=== PATIENT | female | born 1995 | race Caucasian/White ===

== ENCOUNTER 2019-11-17 21:40 | Inpatient (IN) | payer OTHER ==
[2019-11-17 22:22] LABS: BASO % 0.2 % (0-2.0); EOS % 1.3 % (0-4.5); HEMATOCRIT 31.3 % (32.4-45.2); HEMOGLOBIN 10.6 GM/dL (10.7-15.3); LYMPH % 14.9 % (8-40); MCH 30.7 pg (25.7-33.7); MCHC 33.9 g/dl (32.0-36.0); MEAN CELL VOLUME 90.4 fl (80-96); MEAN PLT VOLUME 8.8 fl (7.5-11.1); MONO % 5.6 % (3.8-10.2); PLATELET COUNT 184 K/MM3 (134-434); RBC 3.46 M/mm3 (3.60-5.2); RDW 13.9 % (11.6-15.6)
[2019-11-17 22:36] LABS: INR 0.9 (0.83-1.09); PROTHROMBIN TIME (PATIENT) 10.6 SEC (9.7-13.0)
[2019-11-17 22:39] LABS: ACTIVATED PTT 23.3 SECONDS (25.2-36.5)
[2019-11-17 22:51] LABS: BLOOD UREA NITROGEN 9.7 mg/dL (7-18); CALCIUM 8.8 mg/dL (8.5-10.1); CREATININE 0.6 mg/dL (0.55-1.3); POTASSIUM 3.8 mmol/L (3.5-5.1)
[2019-11-17] MEDS ORDERED: OXYTOCIN 30 UNITS in 0.9% NS 30 UNIT/500 ML INFUS.BAG IVPB SCH (23:15)
[2019-11-17] MEDS ORDERED: OXYTOCIN 30 UNITS in 0.9% NS 30 UNIT/500 ML INFUS.BAG IVPB ONE (23:15)
[2019-11-17] MEDS ORDERED: ELECTROLYTE-148 SOLN 1,000 ML IV SCH (23:15)
--- NOTE | 2019-11-17 23:27 | HP ---
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 Vanishing twin Velamentous cord insertion Clinodactily, Cardiac echogenic foci - genetics : NIPS low risk History Source: Patient Limitations to Obtaining History: No Limitations - Past Medical History ...: 2 ...Para: 1 ...EDC by Sono: 11/21/19 - Past Surgical History Past Surgical History: Yes: Cholecystectomy Hx Myomectomy: No Hx Transabdominal Cerclage: No - Smoking History Smoking history: Never smoked Have you smoked in the past 12 months: No - Alcohol/Substance Use Hx Alcohol Use: No History of Substance Use: reports: None - Social History Usual Living Arrangement: Yes: With Spouse History of Recent Travel: No Home Medications - Allergies Allergies/Adverse Reactions: Allergies Allergy/AdvReac Type Severity Reaction Status Date / Time almond Allergy Mild Itching Verified 11/17/19 22:38 hazelnut Allergy Mild Hives Verified 11/17/19 22:38 polen Allergy Mild Itching Uncoded 11/17/19 22:39 - Home Medications Home Medications: Ambulatory Orders Pnv No.95/Ferrous Fum/Folic AC [ Caplet] 1 tab PO DAILY 11/17/19 Family Medical History Family History: Unremarkable Review of Systems - Review of Systems Constitutional: reports: No Symptoms Eyes: reports: No Symptoms HENT: reports: No Symptoms Neck: reports: No Symptoms Cardiovascular: reports: No Symptoms Respiratory: reports: No Symptoms Gastrointestinal: reports: No Symptoms Genitourinary: reports: Pain Breasts: reports: No Symptoms Reported Musculoskeletal: reports: No Symptoms Integumentary: reports: No Symptoms Neurological: reports: No Symptoms Endocrine: reports: No Symptoms Hematology/Lymphatic: reports: No Symptoms Psychiatric: reports: No Symptoms Physical Exam - Maternity Vital Signs: Vital Signs Temperature 98.3 F 11/17/19 22:48 Pulse Rate 92 H 11/17/19 22:48 Respiratory Rate 20 11/17/19 22:48 Blood Pressure 123/74 11/17/19 22:48 O2 Sat by Pulse Oximetry (%) Constitutional: Yes: Well Nourished, No Distress Eyes: Yes: WNL HENT: Yes: WNL Neck: Yes: WNL Cardiovascular: Yes: WNL Lungs: Clear to auscultation Breast(s): Yes: WNL - Abdominal Exam/OB Fundal Height: 40 Number of Fetuses: Single Presentation: Vertex Contractions: Yes Regularity: Regular Intensity: Mild/Mod Monitor Mode: External Heart Rate (range): 140 Heart Rate Location: [facility] [place] Category: I Accelerations: Uniform Decelerations: None - Vaginal Exam/OB Vaginal Bleeding: No Dilatation (cm): 6 Effacement (%): 100 Amniotic Membrane Status: Intact Presentation: Vertex/Position Station: -2 - Physical Exam Musculoskeletal: Yes: WNL Extremities: Yes: WNL, Other (Varicosity) Integumentary: Yes: WNL Deep Tendon Reflex Grade: Normal +2 Psychiatric: Yes: WNL - Labs Lab Results: CBC, BMP 11/17/19 22:15 11/17/19 22:15 Hemorrhage Risk Assessment - Risk Factors Risk Score: 1 Risk Level: Medium Risk Problem List - Problems (1) 39 weeks gestation of Code(s): Z3A.39 - 39 WEEKS GESTATION OF (2) Velamentous insertion of umbilical cord Code(s): O43.129 - VELAMENTOUS INSERTION OF UMBILICAL CORD, UNSP TRIMESTER Assessment/Plan Admit to LD Anticipate
[2019-11-17] MEDS ORDERED: LIDOCAINE HCL 1% PRESERVATIVE FREE - 30ML VIAL ONE (23:41)
[2019-11-18] MEDS ORDERED: METHYLERGONOVINE MALEATE 0.2 MG/1 ML AMP IM PRN (00:06)
[2019-11-18] MEDS ORDERED: WITCH HAZEL 50% (TUCKS) 40 PAD/JAR PAD TP PRN (00:06)
[2019-11-18] MEDS ORDERED: BISACODYL 10 MG SUPP.RECT RC PRN (00:06)
[2019-11-18] MEDS ORDERED: ACETAMINOPHEN 325 MG TABLET (FP) PO PRN (00:06)
[2019-11-18] MEDS ORDERED: BENZOCAINE 20% 57 GM BOTTLE TP PRN (00:06)
[2019-11-18] MEDS ORDERED: BENZOCAINE 28 GM HEMORRHOIDAL OINTMENT TP PRN (00:06)
--- NOTE | 2019-11-18 00:06 | PN ---
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
[2019-11-18] MEDS ORDERED: MAGNESIUM HYDROX 2400MG/30ML ORAL SUSPENSION 30 ML CUP PO ONE (00:09)
[2019-11-18] MEDS ORDERED: OXYTOCIN 20 UNITS in 0.9% NS 20 UNIT/1,000 ML INFUS.BAG IV SCH (00:15)
--- NOTE | 2019-11-18 10:06 | PN ---
Post Progress Note Type of Delivery: Vital Signs: Vital Signs Temperature 99.4 F 11/18/19 06:19 Pulse Rate 80 11/18/19 06:19 Respiratory Rate 20 11/18/19 06:19 Blood Pressure 124/79 11/18/19 06:19 O2 Sat by Pulse Oximetry (%) 99 11/18/19 01:00 Breast Exam: Yes: Soft Uterus: Yes: Fundus Firm, Fundus below umbilicus Abdomen/GI: Yes: Abdomen soft Lochia: Yes: Rubra Lochia, amount: Small Extremities: Yes: Calves non-tender Perineum: Yes: Laceration Activity: Ambulating - Labs Labs: CBC WBC 10.0 K/mm3 (4.0-10.0) 11/17/19 22:15 RBC 3.46 M/mm3 (3.60-5.2) L 11/17/19 22:15 Hgb 10.6 GM/dL (10.7-15.3) L 11/17/19 22:15 Hct 31.3 % (32.4-45.2) L 11/17/19 22:15 MCV 90.4 fl (80-96) 11/17/19 22:15 MCH 30.7 pg (25.7-33.7) 11/17/19 22:15 MCHC 33.9 g/dl (32.0-36.0) 11/17/19 22:15 RDW 13.9 % (11.6-15.6) 11/17/19 22:15 Plt Count 184 K/MM3 (134-434) 11/17/19 22:15 MPV 8.8 fl (7.5-11.1) 11/17/19 22:15 Absolute Neuts (auto) 7.8 K/mm3 (1.5-8.0) 11/17/19 22:15 Neutrophils % 78.0 % (42.8-82.8) 11/17/19 22:15 Lymphocytes % 14.9 % (8-40) 11/17/19 22:15 Monocytes % 5.6 % (3.8-10.2) 11/17/19 22:15 Eosinophils % 1.3 % (0-4.5) 11/17/19 22:15 Basophils % 0.2 % (0-2.0) 11/17/19 22:15 Nucleated RBC % 0 % (0-0) 11/17/19 22:15 Problem List - Problems (1) 39 weeks gestation of Code(s): Z3A.39 - 39 WEEKS GESTATION OF (2) Velamentous insertion of umbilical cord Code(s): O43.129 - VELAMENTOUS INSERTION OF UMBILICAL CORD, UNSP TRIMESTER Assessment/Plan Abulate Breast feeding
[2019-11-18] MEDS: PRENATAL VITAMINS W/ FOLIC ACID TABLET (FP) PO SCH (10:26)
[2019-11-18] MEDS: FERROUS SO4 325 MG TABLET (FP) PO SCH ×3 (10:26→18:01)
--- NOTE | 2019-11-18 12:46 | PN ---
Progress Note (short form) - Note Progress Note: Call by the nurse: Pt c/o right leg pain PE - Varicosity of LE R>L Small, painful area of varicosity on the right/midposterior A/P S/P Varicosity of LE Doppler studies stat Problem List - Problems (1) 39 weeks gestation of Code(s): Z3A.39 - 39 WEEKS GESTATION OF (2) Velamentous insertion of umbilical cord Code(s): O43.129 - VELAMENTOUS INSERTION OF UMBILICAL CORD, UNSP TRIMESTER
[2019-11-18] MEDS: IBUPROFEN 600 MG TABLET (FP) PO PRN (18:02)
--- NOTE | 2019-11-18 21:20 | DS ---
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: Vital Signs Temperature 98.4 F 11/18/19 20:41 Pulse Rate 86 11/18/19 20:41 Respiratory Rate 20 11/18/19 20:41 Blood Pressure 124/70 11/18/19 20:41 O2 Sat by Pulse Oximetry (%) 99 11/18/19 01:00 Constitutional: Yes: Well Nourished, No Distress Eyes: Yes: WNL HENT: Yes: WNL Neck: Yes: WNL Cardiovascular: Yes: WNL Respiratory: Yes: WNL Gastrointestinal: Yes: WNL ...Rectal Exam: Yes: WNL Renal/: Yes: WNL Pelvis: Yes: WNL ....Post : Yes: Uterus firm, Uterus non-tender Breast(s): Yes: WNL Musculoskeletal: Yes: WNL Edema: LLE: 1+, RLE: 1+ Neurological: Yes: WNL ...Motor Strength: WNL Psychiatric: Yes: WNL Labs: CBC, BMP 11/17/19 22:15 11/17/19 22:15 Delivery - Delivery Vaginal Delivery: No Problems, Spontaneous Type of Anesthesia: Local Episiotomy/Laceration: Perineal Extension/lac, 1st degree EBL (cc): 600 Delivery, Single - Stages of Labor Date 1st Stage Initiatied: 11/17/19 Time 1st Stage Initiated: 18:00 Date 2nd Stage Initiated: 11/18/19 Time 2nd Stage Initiated: 23:30 Date of Delivery: 11/17/19 Time of Delivery: 23:38 Time Placenta Delivered: 23:43 Placenta: Yes: Spontaneous, Abnormal 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 - 1 Minute Total Score: 9 5 Minutes Total Score: 9 - [place] Feeding Plan Initial Plan: Exclusive throughout hospitalization Discharge Summary Problems reviewed: Yes Reason For Visit: LABOR Current Active Problems 39 weeks gestation of (Acute) Velamentous insertion of umbilical cord (Acute) Condition: Good - Instructions Diet, Activity, Other Instructions: Regular ambulate Disposition: HOME - Home Medications Comprehensive Discharge Medication List: Ambulatory Orders Pnv No.95/Ferrous Fum/Folic AC [ Caplet] 1 tab PO DAILY 11/17/19
[2019-11-19] MEDS: FERROUS SO4 325 MG TABLET (FP) PO SCH ×2 (09:20→12:41)
[2019-11-19] MEDS: PRENATAL VITAMINS W/ FOLIC ACID TABLET (FP) PO SCH (09:22)
[2019-11-19 10:50] LABS: BASO % 0.4 % (0-2.0); EOS % 1.9 % (0-4.5); HEMATOCRIT 28.3 % (32.4-45.2); HEMOGLOBIN 9.6 GM/dL (10.7-15.3); LYMPH % 23.6 % (8-40); MCH 30.7 pg (25.7-33.7); MCHC 33.9 g/dl (32.0-36.0); MEAN CELL VOLUME 90.4 fl (80-96); MEAN PLT VOLUME 8.8 fl (7.5-11.1); MONO % 4.8 % (3.8-10.2); NEUT % 69.3 % (42.8-82.8); PLATELET COUNT 192 K/MM3 (134-434); RBC 3.13 M/mm3 (3.60-5.2); RDW 14.1 % (11.6-15.6); WHITE BLOOD COUNT 9.2 K/mm3 (4.0-10.0)
--- NOTE | 2019-11-19 11:34 | PATH ---
Surgical Pathology Report Patient Name: HARSHA NELSON Med. Rec. 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 Specimen(s) Received PLACENTA Clinical History , 39.3 weeks, history of vanishing twins, echogenic foci, grade 3 placenta, velamentous insertion of cord Final Diagnosis PLACENTA, DELIVERY: 461 G THIRD TRIMESTER PLACENTA , TRIVASCULAR UMBILICAL CORD WITH VELAMENTOUS INSERTION, AND UNREMARKABLE PLACENTAL MEMBRANES. Electronically Signed Joya Patel M.D. Gross Description The specimen is received fresh labeled placenta and is a 461 gram, 18.5 x 12.5 x 2.6 cm. placenta with attached membranes and umbilical cord. The attached membranes are belle, translucent with focal opacities and insert marginally. The umbilical cord measures 19.5 cm. in length and averages 1 cm. in diameter. The cord inserts velamentously. No true knots or strictures are identified. Cut surface of the umbilical cord reveals 3 vessels. The surface is miller-blue with minimal fibrin deposition and appropriate caliber vessels. The maternal surface is red-brown with focal defects. Sectioning reveals red-brown, spongy parenchyma. No lesions are identified. Overcoiler sections are submitted in three cassettes as follows: 1- membrane rolls and umbilical cord; 2-3- full thickness sections of placenta. /11/18/2019 [facility]/11/18/2019
[2019-11-19] MEDS: IBUPROFEN 600 MG TABLET (FP) PO PRN (12:58)
[2019-11-19 15:19] VITALS: BP 121/72; PULSE 76; TEMP 98
== END 2019-11-19 14:30 | disposition home or self-care (01) | DRG 560 ==
LOC: JLDR 21:40 → J3W 11-18 02:34
PROVIDERS: ADMIT Obstetrics & Gynecology; ATTEND Obstetrics & Gynecology
PROC: 10E0XZZ Delivery of Products of Conception, External Approach (ICD-10-PCS; principal; 2019-11-17)
PROC: 0HQ9XZZ Repair Perineum Skin, External Approach (ICD-10-PCS; 2019-11-17)
PROC: 0W8NXZZ Division of Female Perineum, External Approach (ICD-10-PCS; 2019-11-17)
DX: O70.0 First degree perineal laceration during delivery (principal); O43.123 Velamentous insertion of umbilical cord, third trimester; Z3A.39 39 weeks gestation of pregnancy; Z37.0 Single live birth
CPT/HCPCS: 36415; 59409; 80048; 85025; 85610; 85730; 86780; 86850; 86900; 86901; 88307-TC; 93970-TC; U0003